=== PATIENT | male | born 1990 | race Caucasian/White ===

== ENCOUNTER 2021-05-27 10:09 | Emergency (ER) | payer OTHER ==
[~2021-05-27 10:09] MED LIST: AUGMENTIN 875-1 EACH PO; ZOFRAN4 MG PO
[2021-05-27 11:58] LABS: RED BLOOD COUNT 4.87 M/UL (4.20-5.50); WHITE BLOOD COUNT 5.2 K/UL (4.5-11.0)
[2021-05-27 12:23] LABS: BUN/CREATININE RATIO 14 (0-10)
[2021-05-27] MEDS ORDERED: BENTYL 20MG TAB20 MG PO (16:55)
[2021-05-27] MEDS ORDERED: ZOFRAN4 MG PO (16:55)
[2021-05-27] MEDS ORDERED: MIRALAX17 GM PO (16:56)
== END 2021-05-27 17:11 | disposition home or self-care (01) ==
LOC: ER1 10:09
PROVIDERS: Physician Assistant Medical
DX: R10.31 Right lower quadrant pain (principal); R11.0 Nausea; R91.1 Solitary pulmonary nodule; F17.210 Nicotine dependence, cigarettes, uncomplicated; Z88.8 Allergy status to other drugs, medicaments and biological substances
CPT/HCPCS: 80053; 81001; 85025; 85652; 86140; 96374; 99284; J2405; J7030; Q9967

== ENCOUNTER 2021-07-07 18:49 | Emergency (ER) | payer SELFPAY ==
[~2021-07-07 18:49] MED LIST changes: +BENTYL 20MG TAB20 MG PO; +MIRALAX17 GM PO
== END 2021-07-07 19:20 | disposition home or self-care (01) ==
LOC: ER1 18:49
DX: U07.1 COVID-19 (principal); F17.210 Nicotine dependence, cigarettes, uncomplicated; Z88.8 Allergy status to other drugs, medicaments and biological substances
CPT/HCPCS: 99284; U0003